=== PATIENT | male | born 1950 | race Caucasian/White ===

== ENCOUNTER 2017-01-16 02:06 | Emergency (ER) | payer OTHER ==
[2017-01-16] MEDS ORDERED: RACEPINEPHRINE HCL 0.5 ML VIAL IH ONE (02:12)
--- OUTSIDE RECORDS SUMMARY | 2017-01-16 03:16 | XMS REPORT | Continuity of Care Document ---
:1950 Author Organization [facility] ([facility]) Address [address] [place] [address] Phone [phone] Care Team Providers Name Role Phone Murray Rodney Primary Care Provider [phone] Source Comments This disclosure is being made pursuant to the Care Everywhere program, applicable federal and state laws, and may not contain all informaitonavailable regarding this patient.[facility] ([facility]) Active Allergies and Adverse Reactions Allergen Noted Date Severity Reactions Comments Penicillin 12/16/2016 Angioedema Current Medications Prescription Sig. Disp. Refills Start Date End Date Status gabapentin 400 mg capsule Take 1,200 mg by Active mouth 3 times daily. lisinopril PO Take 5 mg by mouth Active daily. atenolol 25 mg tablet Take 25 mg by mouth Active daily. baclofen PO Take 2 tablets by Active mouth 3 times daily. HYDROcodone-acetaminophen Take 1 tablet by Active 5-325 mg per tablet mouth every 4 hours as needed. folic acid 1 mg tablet Take 1 mg by mouth Active daily. ferrous gluconate 324 mg Take 324 mg by Active (38 mg iron) tablet mouth daily. divalproex 500 mg XR Take 500 mg by Active tablet (24 hour) mouth at bedtime. atorvastatin 80 mg tablet Take 40 mg by mouth Active every evening. albuterol 90 Use 2 Puffs by Active mcg/Actuation inhaler inhalation every 6 hours as needed. aspirin 81 mg EC tablet Take 81 mg by mouth Active daily. cholecalciferol (VITAMIN Take 2,000 Units by Active D3) 2,000 unit tablet mouth daily. nitroglycerin 0.[address] 0.4 mg under Active tablet the tongue every 5 minutes as needed. Maximum of 3 tablets in 15 minutes. mometasone (ASMANEX) 220 Use 2 Puffs by Active mcg (120 doses) inhaler inhalation 2 times daily. mirtazapine 45 mg tablet Take 45 mg by mouth Active at bedtime. olodaterol 2.5 Use 2 Puffs by Active mcg/actuation mist inhalation daily. thiamine 100 mg tablet Take 100 mg by Active mouth daily. 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 Most Recent Encounters Date Type Specialty Providers Description 12/16/2016 Office Visit Otolaryngology Shellie Montero MD Dx: Malignant neoplasm of supraglottis (Primary Dx) 12/16/2016 Office Visit Otolaryngology Kelia Rojas MD Dx: Malignant neoplasm of supraglottis (Primary Dx) Social History Tobacco Use Types Packs/Day Years Used Date Current Every Day Smoker 1 Smokeless Tobacco: Never Used Tobacco Cessation:Ready to Quit: No Comments: Last Filed Vital Signs Vital Sign Reading Time Taken Blood Pressure 114/67 12/16/2016 8:51 AM CDT Pulse 65 12/16/2016 8:51 AM CDT Temperature 36.4 C (97.5 F) 12/16/2016 8:51 AM CDT Respiratory Rate - - Height 1.88 m (6' 2.02") 12/16/2016 8:51 AM CDT Weight 96.7 kg (213 lb 3 oz) 12/16/2016 8:51 AM CDT Body Mass Index 27.36 12/16/2016 8:51 AM CDT Oxygen Saturation 94% 12/16/2016 8:51 AM CDT Plan of Care Health Maintenance Due Date Last Done Comments HCV Screening 1950 Hepatitis B Vaccine (1 of 3 - Primary Series) 1950 Tdap Vaccine 1963 Lipid Disorder Screening 1970 Td Vaccine 1970 Pneumococcal Vaccine (1 of 3 - PCV13) 1971 Colonoscopy 2002 Prostate Cancer Screening 2002 Zoster Vaccine 2012 Influenza Vaccine: Seasonal (Season Ended) 2017 Procedures from Last 3 Months Procedure Name Priority Date/Time Associated Diagnosis Comments LARGSC FLX FIBOPT Routine 12/19/2016 3:55 Malignant neoplasm of Results for this DX PM CDT supraglottis procedure are in the results section. Results from Last 3 Months LARYNGOSCOPY (12/19/2016 3:55 PM) Keila Priest MD 12/19/20163:55 PM Clinic Note Encounter Date: 12/16/2016 Subjective: Jeff Cole is a 66 y.o. male with a history of supraglottic SCCa referred from CT for radiation oncology evaluation.He notes 3-4 months ago his voice began to change and he also developed difficulty swallowing.He was seen at CT were DL/B was performed revealing a left supraglottic SCCa.CT scan showed a large left supralgottic mass extending to the base of tongue, crossing midline with aryepiglottic extension and abutting the thyroid cartilage, with an enlarged left level 2A node.He also notes a 50 lbs weight loss over the past 9 months, although part of this is intentional. He is a current smoker (1ppd down from 2.5ppd), and has COPD and requires 3 inhalers and has needed to take prednisone in the past.He drinks 4-6 beers per day.He has baseline dyspnea, which is worse when lying down, however he is still able to lie flat.He does take Aspirin 81mg.He had an MO 15 years ago (no stents of CABG). Active Problem List Diagnosis Code Malignant neoplasm of supraglottis C32.1 No past surgical history on file. No family history on file. Current Outpatient Prescriptions Medication Sig Dispense Refill albuterol 90 mcg/Actuation inhaler Use 2 Puffs by inhalation every 6 hours as needed. aspirin 81 mg EC tablet Take 81 mg by mouth daily. atenolol 25 mg tablet Take 25 mg by mouth daily. atorvastatin 80 mg tablet Take 40 mg by mouth every evening. baclofen PO Take 2 tablets by mouth 3 times daily. cholecalciferol (VITAMIN D3) 2,000 unit tablet Take 2,000 Units by mouth daily. divalproex 500 mg XR tablet (24 hour) Take 500 mg by mouth at bedtime. ferrous gluconate 324 mg (38 mg iron) tablet Take 324 mg by mouth daily. folic acid 1 mg tablet Take 1 mg by mouth daily. gabapentin 400 mg capsule Take 1,200 mg by mouth 3 times daily. HYDROcodone-acetaminophen 5-325 mg per tablet Take 1 tablet by mouth every 4 hours as needed. lisinopril PO Take 5 mg by mouth daily. mirtazapine 45 mg tablet Take 45 mg by mouth at bedtime. mometasone (ASMANEX) 220 mcg (120 doses) inhaler Use 2 Puffs by inhalation 2 times daily. nitroglycerin 0.[address] 0.4 mg under the tongue every 5 minutes as needed. Maximum of 3 tablets in 15 minutes. olodaterol 2.5 mcg/actuation mist Use 2 Puffs by inhalation daily. thiamine 100 mg tablet Take 100 mg by mouth daily. No current facility-administered medications for this visit. Allergies Allergen Reactions Penicillin Angioedema Social History Social History Marital Status: N/A Spouse Name: N/A Number of Children: N/A Years of Education: N/A Occupational History Not on file. Social History Main Topics Smoking status: Current Every Day Smoker -- 1.00 packs/day Smokeless tobacco: Never Used Alcohol Use: Not on file Drug Use: Not on file Sexual Activity: Not on file Other Topics Concern Not on file Social History Narrative No narrative on file Review of Systems ROS All systems were reviewed and are negative except for: Constitutional: Chills, Weight loss, Tired or sleepy Eyes: Blurry vision, Trouble seeing with glasses Ears: Trouble hearing Nose/throat/mouth: Throat problems Cardiovascular: Poor circulation in legs Respiratory: Coughing, Wheezing, Coughing up fluid GI: Hard to swallow Urogenital:Up at night to urinate, Erectile concerns Musculoskeletal: Muscle weakness, Arm Weakness, Leg Weakness Neurological: Seizures, Frequent Headaches, Numbness of an arm/leg Mental Health: Excessive worry, Excessive nervousness Cancer: Yes Other issues: none Objective: BP 114/67 mmHg | Pulse 65 | Temp(Src) 36.4 C (97.5 F) | Ht 1.88 m (6' 2.02") | Wt 96.7 kg (213 lb 3 oz) | BMI 27.36 kg/m2 | SpO2 94% Appearance: No distress, appears stated age Communication: weak, hoarse voice Head/Face: inspection -normal palpation -normal salivary glands -normal facial strength -normal Skin:normal Eyes:normal, EOMI Ears:Auricle AU normal EAC AU normal TM AU normal Nose:ext. inspection -normal int. inspection -normal Oral Cavity:lips -normal Tongue- normal mucosa -normal hard palate -normal Oropharynx: mucosa -normal soft palate -normal tonsils - normal Nasopharynx: normal Larynx/ Hypopharynx: Large left supraglottic mass extending to base of tongue, left vocal cord / arytenoid fixed. Neck: Left neck mass along SCM thyroid -Normal Lymphatic:no cervical ZAHIDA Cardiovascular:RRR, no murmurs AbdomenSoft, Non-tender, bowel sounds present Respiratory:mild inspiratory stridor Neuro/Psych.: affect -normal mental status -Normal HB 1/6 bilateral, palate elevates symmetric, tongue protrudes midline Data Reviewed: old/outside records [facility] Procedure Performed: Laryngoscopy (flexible) Scope details: diagnostic Additional Procedure Detail: Flexible fiberoptic laryngoscopy: Verbal consent was obtained. The nasal cavity was prepped with an aerosolized solution of topical anesthetic and vasoconstrictive agent. The scope was passed through the anterior nasal cavity, nasopharynx, with visualization of the vocal cords, pyriform sinuses, epiglottis, aryepiglottic folds, vallecula and base of tongue as noted above in the physical exam. Procedure tolerated well with no immediate complications noted. Dr. Keila Rojas was present for the entire procedure. Assessment: Encounter Diagnoses ICD-10-CM ICD-9-CM 1. 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 Plan: -Agree with treatment by CT otolaryngology Staff Physician Comments Jeff Cole is seen for evaluation of a supraglottic SCC - he receives his care at the CT, and recently had a biopsy that he understands showed cancer.He has discussed the treatment options with the Otolaryngology service at the CT, and understands that those options are either primary surgical (total laryngectomy, neck dissections) and likely adjuvant radiation tx, or non-surgical with chemoRT.His main symptoms are hoarseness and dysphagia; he denies new dyspnea although he does have baseline COPD and is not very physically active d/t weakness in his R leg. Complete head and neck exam was performed, including FFL. Pertinent findings includeL sided supraglottic mass involving epiglottis, AE fold, FVC, obscuring entire L TVC and anterior 2/3 of R TVC.View of piriform sinus on the left is obliterated by submucosal tumor and edema.Tumor does appear to involve L glossoepiglottic fold and a small area of the BOT/vallucula.L hemilarynx appears immobile.Has a tender L level II node. Outside CT neck was reviewed, shows tumor filling the pre-epiglottic and L paraglottic space, widening of TA space, tumor surrounding L arytenoid.L level 2 LAD. Mr Cole has what seems to be a T3N1 SCC of the supraglottis.He does not seem to be a good candidate for conservation laryngeal surgery given the extent of his tumor.He meet with Radiation Oncology at this visit to discuss radiation therapy.He indicates that he is in favor of surgical therapy, which he wants to be done at the CT.He has a swallow study and PEt/CT scheduled today at the CT.He will follow-up with the Otolaryngology service at the CT to set up treatment. Teaching Statement I have interviewed and examined the patient and confirm the pertinent findings.I have discussed the case with the resident/fellow and agree with the findings and plan as documented. Keila Rojas MD Staff Involved Staff and Resident/Fellow Gregg Hernandez MD
[2017-01-16 03:42] VITALS: BP 112/64
--- NOTE | 2017-01-16 03:49 | ERNOTE ---
Dyspnea - Date Date of Service: 01/16/17 - General Presenting Symptoms: difficulty of breathing Time Seen by Provider: 01/16/17 02:58 Source: patient, family - Immun/Allergies/Home Medications Immunizations: IMMUNIZATION HX History of Influenza Vaccine No Hx Pneumococcal Vaccination No Allergies/Adverse Reactions: Allergies penicillin G Allergy (Verified 01/16/17 02:09) - History of Present Illness Narrative: PT HAD EXTENSIVE NECK SURGERY FOR CARCINOMA ON 03 JANUARY IN [facility]. THEY PREPARED A STOMA FOR A TRACH BUT WERE NOT ABLE TO PLACE A TRACH IN THE STOMA THERE WAS MUCH SWELLING AROUND IT. THE PT WAS DISCHARGED HOME TO TO STOMA CARE WITH SUCTION HELPED BY HIS DAUGHTER AND SON. ABOUT 0900 TODAY , Monday, THEY NOTED TROUBLE GETTING MATERIAL OUT OF THE STOMA WITH SUCTIONING. THEY WORKED AT IT SEVERAL TIMES AND SAY THAT THERE WAS WHAT LOOKED LIKE A LARGE CLOT THAT THEY COULD NOT REACH AND COULD NOT SUCTION. THIS WAS ACTING LIKE A FLAP VALVE AND CAUSING THE PT DISTRESS BECAUSE IT WAS PARTIALLY OBSTRUCTING THE STOMA SOT THEY BROUGHT HIM HERE BY EMS. EMS TRIED SUCTION AND PUT HIM ON 2 L O2 WITH SATS OF 95-100%. HE HAS NOT HAD RADIATION BUT IS BEING PREPARED FOR THAT AND CHEMO. Review of Systems - Review of Systems Constitutional: Present: See HPI Respiratory: Present: See HPI, other - AIRWAY OBSTUCTION FROM STOMA Cardiology: Present: no symptoms reported Gastrointestinal/Abdominal: Present: no symptoms reported Musculoskeletal: Present: no symptoms reported Skin: Present: no symptoms reported Psych: Present: no symptoms reported All Other Systems: All systems neg except as marked - Patient's Past Medical History Patient History - Medical: Chronic Pain Patient History - Cardiac/Respiratory: COPD, CVA/Stroke, Myocardial Infarction, Pneumonia Patient History - Cancer: Skin, Other - THRAT AND NECK CA. Patient History - Surgical Procedures: Cancer Surgery - NECK AND TRACHEAL RESECTION AND STOMA CONSTRUCTION. - Social History Living Situations: home Smoking Status: Former smoker Alcohol Use: heavy Drug Use: none - Immunizations Hx Pneumococcal Vaccination: No History of Influenza Vaccine: No Physical Exam - Physical Exam General Appearance: Present: wd/wn, alert, moderate distress - PT IS A CHRONICALLY ILL APPEARING MAN WITH ANXIETY NERVOUSNESS ABOUT TRACH BEING PARTIALLY OBSTRUCTED. HE CAN NOT SPEEAK BECAUSE OF THE EXTENSIVE SURDGERY. Ears, Nose, Throat: Present: normal except - - NO VOICE WITH STOMA TO ANT. NECK THAT IS FAIRLY SMALL ABOUT DIME TO NICKEL SIZE WITH MUC LOCAL ERYTHEMA AND SELLING ACROSS HIS ANTERIOR NECK. THERE APPEARS TO BE A BROWNISH PIECE OF MUCOUS OR DESD TISSUE ATTACHED TO THE INNER ASPECT OF THE STOMA JUST BEYOND REACH THAT WILL NOT SUCTION LOOSE. IT OCCASIONALLY FLAPS OUTWARD CAUSING A PARTIAL BLOCKAGE OF THE STOMA. NO BLEEDING. HE DOESS COUGH UP A Fair amount of mucous. Respiratory: Present: normal breath sounds, no accessory muscle use, chest nontender, lungs clear, respiratory distress - mild when the flap protrudes. , other - he has good sao2 on ra Cardiovascular/Chest: Present: regular rate, rhythm, no murmur, normal peripheral pulses Neurological Exam: Present: alert, oriented - but unable to speak. he does have a fairly coarse tremor. ED Progress - Vital Signs Patient's Vital Signs:: I have reviewed the patient's vital signs. Vital Signs: Vital Signs 01/16/17 01/16/17 01/16/17 02:09 02:45 03:37 Temperature 37.1 C Pulse Rate 63 65 70 Respiratory 24 H 28 H 24 H Rate Blood Pressure 146/68 146/68 112/64 O2 Sat by Pulse 100 95 93 Oximetry - Progress/Reassessment Chief Complaint: Dyspnea Progress:: Improved Progress Note-Subjective: 01/16/17 05:18 pt was given a racemic epi neb treatment and then put on humidified air to the stoma. After awhile the offending tissue did protrude far enough out of the stoma that RN could grab it and remove causing the pt to immediately feel better . When assured he was back at his normal state we made arrangements for him to be discharged. He then told us that this had happened once before in the past 10 days but they were able to clear it at home. The tisssue that was removed looked more like a flap of skin than a mucous plug. Departure Clinical Impression: Trachea, foreign body Qualifiers: Encounter type: initial encounter Qualified Code(s): T17.408A - Unspecified foreign body in trachea causing other injury, initial encounter - Departure Disposition: Home self-care Condition: Good Instructions: How to Clean a Stoma and Replace Tracheostomy Ties, Adult Additional Instructions: THE WRITTEN INSTRUCTIONS DO NOT EXACTLY PERTAIN TO YOUR PROBLEM. TRY TO STAY WELL HYDRATED. CONSIDER USING BED SIDE VAPORIZER TO KEEP AIR A LITTLE HUMID HELPING KEEP MUCOUS LOOSE. CONTINUE WITH YOUR SUCTIONING . RETURN IF ANY PROBLEMS.
== END 2017-01-16 04:00 | disposition home or self-care (01) ==
LOC: ER 02:06
DX: T17.408A Unspecified foreign body in trachea causing other injury, initial encounter (principal); Z85.828 Personal history of other malignant neoplasm of skin; Z85.12 Personal history of malignant neoplasm of trachea

== ENCOUNTER 2017-01-16 12:49 | Emergency (ER) | payer OTHER ==
--- OUTSIDE RECORDS SUMMARY | 2017-01-16 13:31 | XMS REPORT | Continuity of Care Document ---
:1950 Author Organization [facility] ([facility]) Address [address] [place] [address] Phone [phone] Care Team Providers Name Role Phone Murray Rodney Primary Care Provider [phone] Source Comments This disclosure is being made pursuant to the Care Everywhere program, applicable federal and state laws, and may not contain all informaitonavailable regarding this patient.[facility] ([facility]) Active Allergies and Adverse Reactions Allergen Noted [...] supraglottis (Primary Dx) 12/16/2016 Office Visit Otolaryngology Keila Rojas MD Dx: Malignant neoplasm of supraglottis [...] a history of supraglottic SCCa referred from [facility] for [facility] oncology evaluation.He notes 3-4 months ago his voice began to change and he also developed difficulty swallowing.[facility] was seen at [facility] were [facility]/B was performed revealing a left [...] flat.He does take Aspirin 81mg.He had an CT 15 years ago (no stents of CABG). [...] intends to pursue surgical resection at the [facility].He is set to have a PET/CT at the [facility] today and continue treatment with the Otolaryngology team there. Plan: -Agree with treatment by [facility] otolaryngology Staff Physician Comments Jeff Cole is seen for evaluation of a supraglottic SCC - he receives his care at the [facility], and recently had a biopsy that he understands showed cancer.He has discussed the treatment options with the Otolaryngology service at the [facility], and understands that those options are either [...] he wants to be done at the [facility].He has a swallow study and PEt/CT scheduled today at the [facility].He will follow-up with the Otolaryngology service at the [facility] to set up treatment. Teaching Statement I have interviewed and examined the patient and confirm the pertinent findings.I have discussed the case with the resident/fellow and agree with the findings and plan as documented. Keila Rojas MD Staff Involved Staff and Resident/Fellow Gregg Hernandez MD
[2017-01-16] MEDS ORDERED: ACETYLCYSTEINE 100 MG/ML VIAL IH ONE (13:33)
[2017-01-16] MEDS ORDERED: ALBUTEROL SULFATE 2.5 MG/0.5 ML VIAL.NEB IH ONE ×2 (13:47→13:50)
[2017-01-16] MEDS ORDERED: ACETYLCYSTEINE 100 MG/ML VIAL ONE (13:50)
[2017-01-16] MEDS ORDERED: METHYLPREDNISOLONE ACETATE 80 MG/ML VIAL IM ONE (14:22)
[2017-01-16] MEDS ORDERED: METHYLPREDNISOLONE ACETATE 80 MG/ML VIAL ONE (14:29)
--- NOTE | 2017-01-16 14:50 | ERNOTE ---
Medical Problem HPI - General Chief Complaint: General Assessment Time Seen by Provider: 01/16/17 13:06 Source: patient, family Exam Limitations: no limitations - Immun/Allergies/Home Medications Immunizations: IMMUNIZATION HX Immunizations Up to Date Yes History of Influenza Vaccine No Hx Pneumococcal Vaccination No Allergies/Adverse Reactions: Allergies penicillin G Allergy (Verified 01/16/17 02:09) Home Medications: HOME MEDICATIONS Acetylcysteine [Mucomyst 10%] 3 ml MC QID #120 vial 01/16/17 [Last Taken Unknown ] Dexamethasone [Decadron Elixir] 60 ml PO DAILY #300 btl 01/16/17 [Last Taken Unknown] - History of Present History Narrative: Patient had a recent tracheostomy secondary to laryngeal cancer. Patient and patient's family feel that there is possibly something stuck in his airway. They admit to having done frequent suctioning to help keep the airway clear of any debris. Timing: constant Severity: moderate Review of Systems - Review of Systems Constitutional: Present: See HPI EYE: Present: no symptoms reported ENT: Present: no symptoms reported Respiratory: Present: See HPI Cardiology: Present: no symptoms reported Gastrointestinal/Abdominal: Present: no symptoms reported Genitourinary: Present: no symptoms reported Musculoskeletal: Present: no symptoms reported Skin: Present: no symptoms reported Neurological: Present: no symptoms reported Endocrine: Present: no symptoms reported Hematologic/Lymphatic: Present: no symptoms reported Psych: Present: no symptoms reported - Patient's Past Medical History Patient History - Medical: Chronic Pain Patient History - Cardiac/Respiratory: COPD, CVA/Stroke, Myocardial Infarction, Pneumonia Patient History - Cancer: Skin, Other - laryngeal Patient History - Surgical Procedures: Cancer Surgery - radical neck with tracheostomy in place - Social History Living Situations: home Abuse History: No History of abuse Psych History: No pertinent hx Smoking Status: Former smoker Alcohol Use: heavy Drug Use: none - Immunizations Immunizations Up to Date: Yes Hx Pneumococcal Vaccination: No History of Influenza Vaccine: No Physical Exam - Physical Exam General Appearance: Present: wd/wn, alert, mild distress Eye Exam: Normal inspection: bilateral, PERRL: bilateral Ears, Nose, Throat: Present: normal ENT inspection, H, normal pharynx Neck: Present: normal inspection, nontender, other - no obvious wheezing or stridor noted Respiratory: Present: no respiratory distress, normal breath sounds, no accessory muscle use, chest nontender, lungs clear Cardiovascular/Chest: Present: regular rate, rhythm, no murmur, normal peripheral pulses Gastrointestinal/Abdominal: Present: normal bowel sounds, nontender, nondistended, soft, no organomegaly Rectal Exam: Present: deferred Back Exam: Present: normal inspection, normal range of motion Extremity Exam: Present: normal inspection, non-tender, no edema, normal range of motion Neurological Exam: Present: alert, oriented, normal mood/affect Skin Exam: Present: normal color, warm/dry Lymphatic Exam: Present: no adenopathy ED Progress - Vital Signs Patient's Vital Signs:: I have reviewed the patient's vital signs. Vital Signs: Vital Signs 01/16/17 01/16/17 01/16/17 12:53 13:54 14:04 Temperature 36.8 C Pulse Rate 65 61 64 Respiratory 21 H 16 21 H Rate Blood Pressure 110/54 O2 Sat by Pulse 92 94 Oximetry 01/16/17 14:33 Temperature Pulse Rate 66 Respiratory 16 Rate Blood Pressure 116/81 O2 Sat by Pulse 97 Oximetry - X-Ray X-Ray #1 X-Ray: chest Interpretation: Reviewed by me X-Ray #2 X-Ray: neck soft tissue Interpretation: Reviewed by me - Progress/Reassessment Chief Complaint: General Assessment Plan - Plan Plan: We have arranged for the patient to have humidified air at home for his breathing treatments. We will also add Mucomyst to his albuterol HHN treatments. We'll also provide a brief course 5 days of steroids to help with any bronchospasm. The family will try to minimize any and all suctioning of the area to provide the new wound an opportunity to heal. Departure - Departure Clinical Impression: Tracheostomy care COPD (chronic obstructive pulmonary disease) Qualifiers: COPD type: unspecified COPD Qualified Code(s): J44.9 - Chronic obstructive pulmonary disease, unspecified Disposition: Home self-care Condition: Good Instructions: How to Suction a Tracheostomy, Tracheostomy Prescriptions: Acetylcysteine [Mucomyst 10%] 3 ml MC QID #120 vial Dexamethasone [Decadron Elixir] 60 ml PO DAILY #300 btl
[2017-01-16 16:08] VITALS: BP 116/63
== END 2017-01-16 16:04 | disposition home or self-care (01) ==
LOC: ER 12:49
DX: J44.9 Chronic obstructive pulmonary disease, unspecified (principal); Z85.828 Personal history of other malignant neoplasm of skin; Z85.21 Personal history of malignant neoplasm of larynx